=== PATIENT | male | born 1985 | race Caucasian/White ===

== ENCOUNTER 2025-02-17 15:01 | Emergency (ER) | payer BC ==
[~2025-02-17] VITALS: Ht 180.3 cm; Wt 86.2 kg
[2025-02-17 15:30] VITALS: BP 121/78; TEMP 98.2; O2SAT 99
[2025-02-17] MEDS ORDERED: LIDOCAINE 1% INJ 50 ML MDV IJ ONE (15:32)
[2025-02-17] MEDS ORDERED: TDAP [DIPH/PERTUSSIS/TET] 0.5 ML VIAL IM ONE ×2 (16:00→17:03)
[2025-02-17] MEDS: LIDOCAINE 2% 20 ML MDV TP ONE (16:00)
[2025-02-17] MEDS ORDERED: KETOROLAC TROMETHAMINE 15 MG/ML VIAL ONE (17:03)
[2025-02-17] MEDS: KETOROLAC TROMETHAMINE 15 MG/ML VIAL IM ONE (17:11)
== END 2025-02-17 17:27 | disposition home or self-care (01) ==
LOC: ER 15:15
DX: S61.212A Laceration without foreign body of right middle finger without damage to nail, initial encounter (principal); S60.410A Abrasion of right index finger, initial encounter; W26.8XXA Contact with other sharp object(s), not elsewhere classified, initial encounter; Y93.89 Activity, other specified; Y92.89 Other specified places as the place of occurrence of the external cause; Y99.9 Unspecified external cause status
CPT/HCPCS: 12004; 90471; 90715; 96372; 99283; A6403; J1885; J3490